=== PATIENT | male | born 1975 | race African-American/Black ===

== ENCOUNTER 2018-09-01 13:16 | Emergency (ER) | payer SELFPAY ==
[2018-09-01] MEDS ORDERED: Ondansetron ODT 4 MG TAB ONE (13:50)
[2018-09-01] MEDS ORDERED: Sodium Chloride 0.9% 1,000 ML ONE (13:50)
[2018-09-01] MEDS ORDERED: Acetaminophen 500 MG TAB ONE (13:50)
[2018-09-01 14:04] LABS: #Lymphocytes 0.9 thou/uL (1.20-3.40); #Monocytes 0.7 thou/uL (0.11-0.59); %Basophils 0.7 % (0.0-1.0); %Lymphocytes 13.2 % (21.0-51.0); %Neutrophils 76.1 % (42.0-75.0); Hemoglobin 15.8 g/dL (14.0-18.0); Mean Corpuscular HGB CONC 31.1 g/dL (32.0-36.0); Mean Corpuscular Hemoglobin 26.5 pg (27.0-31.0); Mean Corpuscular Volume 85.4 fL (78.0-98.0); Mean Platelet Volume 7.9 fL (7.4-10.4); Platelet Count 199 thou/uL (130-400); RBC Distribution Width 12.7 % (11.5-14.5); Red Blood Cell (RBC) Count 5.95 mill/uL (4.70-6.10); White Blood Cell (WBC) Count 6.5 thou/uL (4.8-10.8)
[2018-09-01 14:10] LABS: ALT (SGPT) 95 U/L (8-55); AST (SGOT) 107 U/L (5-34); Albumin 4.4 g/dL (3.5-5.0); Alkaline Phosphatase 61 U/L (40-150); Anion Gap 16 mmol/L (10-20); BUN (Urea Nitrogen) 16 mg/dL (8.9-20.6); Bilirubin, Total 1.3 mg/dL (0.2-1.2); Calc. Creatinine Clearance 0 mL/min (70-130); Calcium 8.9 mg/dL (7.8-10.44); Carbon Dioxide 24 mmol/L (22-29); Chloride 100 mmol/L (98-107); Estimated GFR-MDRD 66; Globulin 3.8 g/dL (2.4-3.5); Glucose 111 mg/dL (70-105); Potassium 3.8 mmol/L (3.5-5.1); Protein, Total 8.2 g/dL (6.0-8.3); Sodium 136 mmol/L (136-145)
[2018-09-01] MEDS ORDERED: Ibuprofen 800 MG TAB ONE (14:36)
== END 2018-09-01 15:17 | disposition home or self-care (01) ==
LOC: MADERS 13:16
DX: B34.9 Viral infection, unspecified (principal)
CPT/HCPCS: 80053; 85025; 87804; 96360; J7050; Q0162

== ENCOUNTER 2020-09-19 22:52 | Emergency (ER) | payer BC, SELFPAY | END 2020-09-19 23:58 | disposition home or self-care (01) | LOC: MADERS 22:52 | DX: U07.1 COVID-19 (principal) | CPT/HCPCS: 99283 ==

== ENCOUNTER 2021-12-02 15:26 | Emergency (ER) | payer BC ==
[2021-12-02] MEDS ORDERED: Sulfameth/Trimethoprim DS 800-160mg TAB ONE (16:54)
[2021-12-02] MEDS ORDERED: Cephalexin 500 MG CAP ONE (16:54)
== END 2021-12-02 16:58 | disposition home or self-care (01) ==
LOC: MADERS 15:26
DX: L03.116 Cellulitis of left lower limb (principal)
CPT/HCPCS: 99283